=== PATIENT | female | born 1950 | race Caucasian/White ===

== ENCOUNTER → 2017-01-19 | Outpatient (CLI) | payer MEDICARE, OTHER ==
[~2017-01-19] MED LIST: IOHEXOL 240 MG/ML 50ML VIAL. PO ONE; OMEP20CA9 PO
--- NOTE | 2017-01-19 11:48 | KCIC ---
PQRS Compliance Statement: One or more of the following individualized dose reduction techniques were utilized for this examination: 1. Automated exposure control 2. Adjustment of the mA and/or kV according to patient size 3. Use of iterative reconstruction technique CT ABDOMEN WO CONTRAST Clinical Indication: Abdominal fullness just below sternum. History of fatty liver. Comparison: Complete abdominal ultrasound, March 01, 2013. Technique: Helical CT imaging of the abdomen is performed without IV contrast. Oral contrast is given. Findings: Mild atelectasis or scarring left lung base. Cardiac size normal. There is fatty infiltration of the liver with focal fatty sparing along the gallbladder fossa. Mild hepatosplenomegaly. The gallbladder, pancreas, adrenal glands, abdominal aorta, and kidneys are normal. Stomach unremarkable. Visualized small bowel is normal caliber. Scattered stool in the visualized colon. No colon wall thickening. No abdominal adenopathy or free fluid. A ventral hernia is not identified. No compression fracture in the visualized thoracolumbar spine. Lower lumbar facet hypertrophy. IMPRESSION: 1. Fatty infiltration of the liver. 2. Mild hepatosplenomegaly. 3. No ventral hernia. Electronically signed by: Pavel Garcia MD (01/19/2017 11:45 AM) [id number]
== END | disposition home or self-care (01) ==
LOC: KCIC CT 08:55
PROVIDERS: ATTEND Family Medicine
DX: K76.0 Fatty (change of) liver, not elsewhere classified (principal); R16.2 Hepatomegaly with splenomegaly, not elsewhere classified
CPT/HCPCS: 74150; Q9966

== ENCOUNTER → 2017-01-28 | Outpatient (CLI) | payer MEDICARE, OTHER ==
[~2017-01-28] MED LIST changes: -IOHEXOL 240 MG/ML 50ML VIAL. PO ONE
--- NOTE | 2017-01-28 12:15 | RAD ---
Exam performed: Gastric emptying study. History: [Early satiety, fullness of the chest and epigastric region] Date of service: [01/28/17]. Comparison: [Abdominal ultrasound from 03/01/13.] Discussion: Patient was administered [2.0] mCi of technetium 99 M sulfur colloid in a solid egg meal. Sequential images of the abdomen are obtained. [There is slow emptying of gastric contents into the small bowel bowel. No reflux is identified. Time to half emptying of the stomach measures 312 minutes.] (Normal 60 +/- 30 minutes). Impression: [Prolonged gastric emptying time. Findings are related to gastroparesis or gastric outlet obstruction. Correlate clinically and with endoscopy findings.]
== END | disposition home or self-care (01) ==
LOC: NM 08:03
PROVIDERS: ATTEND Family Medicine
DX: K21.9 Gastro-esophageal reflux disease without esophagitis (principal)
CPT/HCPCS: 78264; A9541